=== PATIENT | male | born 1955 | race Caucasian/White ===

== ENCOUNTER 2023-09-29 09:30 | Day surgery (SDC) | payer OTHER ==
[2023-09-29] MEDS ORDERED: Ringers Lactate 0 ML IV ONE (10:29)
[2023-09-29] MEDS ORDERED: NA CHLORIDE 0.9% 1,000 ML ONE (10:34)
[2023-09-29] MEDS ORDERED: FENTANYL CITR 100 MCG/2 ML ONE (11:19)
[2023-09-29] MEDS ORDERED: NALOXONE HCL 2 MG/2 ML VIAL ONE (11:19)
[2023-09-29] MEDS ORDERED: MIDAZOLAM HCL 2 MG/2 ML INJ ONE (11:19)
[2023-09-29] MEDS ORDERED: FLUMAZENIL 0.1 MG/ML (5 mL VIAL) IV ONE (11:24)
[2023-09-29 13:42] VITALS: BMI 34.6
[2023-09-29 15:46] VITALS: TEMP 97; O2SAT 96
[2023-09-29 16:30] VITALS: BP 120/74
--- NOTE | 2023-09-30 13:49 | RAD REPORT ---
EXAM DESCRIPTION: CT - Renal Biopsy CT - 09/29/2023 12:46 pm CLINICAL HISTORY: N17.9 COMPARISON: No comparisons FINDINGS: Preoperative diagnosis: MANUEL Post operative diagnosis: Same Conscious Sedation: 0.5 milligram Versed, 100 mcg fentanyl. Patient was continuously monitored by nursing staff. Total sedation time: 21 minutes. Contrast used: NONE Estimated blood loss: less than 5 mL Specimens: 3 x 18 gauge core biopsies of the ho-chunk right kidney. The pertinent risks and benefits were discussed with the patient. Informed consent was obtained. Time -out procedure was performed. The patient was placed prone on the table and the lower right back area was prepped and draped in the usual sterile fashion. 1% lidocaine was infiltrated into the subcutane ous and deep tissues for local anesthesia. Under computed tomographic guidance, a 17 gauge introducer was advanced into the lower pole of the right kidney. Subsequently, an 18 gauge, 15 cm long, 20 mm t hrow core biopsy gun was advanced into the renal cortex and 3 cores were obtained. Postprocedure imaging demonstrated no complications. Samples were given to pathology for analysis. Th e patient tolerated the procedure without immediate complication and transferred to the recovery room in stable condition. IMPRESSION: Successful CT guided renal biopsy as above. All CT scans are performed using dose optimization technique as appropriate and may include automated exposure control or mA/KV adjustment according to patient size.
== END 2023-09-29 16:30 | disposition home or self-care (01) ==
LOC: DS 09:30
PROVIDERS: ATTEND Internal Medicine
DX: N17.9 Acute kidney failure, unspecified (principal)
CPT/HCPCS: 88300; 50200; J2250; J3010; J7030; J2310; J7120